=== PATIENT | female | born 1985 | race Caucasian/White ===

== ENCOUNTER 2017-11-12 21:05 | Emergency (ER) | payer OTHER ==
[~2017-11-12] VITALS: Ht 152.4 cm; Wt 51.3 kg
[~2017-11-12 21:05] MED LIST: [UNRECOGNIZED DRUG - CODE] PO
[2017-11-12 21:09] VITALS: BP 111/72
--- NOTE | 2017-11-12 21:12 | NUR ---
TO LOBBY A/W BED, AMBULATORY , VSS, HIRAM NOTED
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
[2017-11-12] MEDS ORDERED: IBUPROFEN 600 MG TAB PO ONE (22:35)
--- NOTE | 2017-11-12 23:27 | NUR ---
CALLED CT WITH NO ANSWER
--- NOTE | 2017-11-12 23:40 | NUR ---
PT RETURNED FROM CT
[2017-11-13 00:59] VITALS: BP 128/75
--- NOTE | 2017-11-13 01:00 | NUR ---
Patient discharged BY DR. LOVE with v/s stable. Written and verbal after care instructions given and explained. Patient alert, oriented and verbalized understanding of instructions. Ambulatory with steady gait. All questions addressed prior to discharge. ID band removed. Patient advised to follow up with PMD. Rx of NAPROSYN 500MG given. Patient educated on indication of medication including possible reaction and side effects. Opportunity to ask questions provided and answered.
== END 2017-11-13 01:00 | disposition home or self-care (01) ==
LOC: MED 21:05
DX: S09.90XA Unspecified injury of head, initial encounter (principal); W22.8XXA Striking against or struck by other objects, initial encounter; Y93.89 Activity, other specified; Y92.89 Other specified places as the place of occurrence of the external cause; Y99.8 Other external cause status; Z79.899 Other long term (current) drug therapy
CPT/HCPCS: 70450; 81025; 99284

== ENCOUNTER 2020-11-17 17:14 | Emergency (ER) | payer BC, OTHER ==
[~2020-11-17] VITALS: Ht 152.4 cm; Wt 50.8 kg
[2020-11-17 17:18] VITALS: BP 109/71
--- NOTE | 2020-11-17 17:22 | NUR ---
PATIENT AMBULATED TO BED 5
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
[2020-11-17 18:15] LABS: BILIRUBIN,URINE NEGATIVE (NEGATIVE); BLOOD, URINE 3+ (NEGATIVE); LEUKOCYTE ESTERASE ,URINE NEGATIVE (NEGATIVE); NITRITE, URINE NEGATIVE (NEGATIVE); PH,URINE 6.5 (5.0-9.0); UGLUCOSE NEGATIVE (NEGATIVE)
[2020-11-17 18:20] LABS: APPEARANCE,URINE BLOODY (CLEAR); COLOR,URINE RED (YELLOW)
[2020-11-17 18:21] LABS: RBC,URINE TOO NUMEROUS TO COUN /HPF (0-5); WBC,URINE 0-5 /HPF (0-5)
[2020-11-17 18:35] LABS: BASOPHILS # (AUTO) 0.2 K/uL (0.00-0.22); BASOPHILS % (AUTO) 1.6 % (0.0-2.0); EOSINOPHILS # (AUTO) 0.1 K/uL (0-0.4); EOSINOPHILS % (AUTO) 0.6 % (0.0-4.0); HEMATOCRIT 35.8 % (36-48); HEMOGLOBIN 12.3 g/dL (12.0-16.0); LYMPHOCYTES % (AUTO) 9.7 % (20.5-51.1); MEAN CORPUSCULAR HEMOGLOBIN 31 pg (27-31); MEAN CORPUSCULAR HGB CONC 34 g/dL (33-37); MEAN CORPUSCULAR VOLUME 91.5 fL (80-94); MONOCYTES # (AUTO) 0.6 K/uL (0.8-1.0); MONOCYTES % (AUTO) 5.7 % (1.7-9.3); NEUTROPHILS # (AUTO) 8.7 K/uL (1.8-7.7); NEUTROPHILS % (AUTO) 82.4 % (42.2-75.2); PLATELET COUNT (AUTO) 236 K/uL (140-450); RED BLOOD CELL COUNT(AUTO) 3.92 MIL/uL (4.20-5.40); RED CELL DISTRIBUTION WIDTH 13.1 % (11.6-13.7); WHITE BLOOD COUNT (AUTO) 10.6 K/uL (4.8-10.8)
[2020-11-17 18:55] LABS: ALBUMIN 4.1 g/dL (3.4-5.0); ANION GAP 9.2 (8-16); CARBON DIOXIDE 30.6 mmol/L (21-32); CREATININE 0.8 mg/dL (0.6-1.3); POTASSIUM 3.8 mmol/L (3.5-5.1); TOTAL BILIRUBIN 0.5 mg/dL (0.0-1.0)
[2020-11-17] MEDS ORDERED: CEPH-588 PO (19:15)
[2020-11-17] MEDS ORDERED: IBUP-2213 PO (19:15)
[2020-11-17] MEDS ORDERED: cefTRIAXone 1,000 MG in LIDOCAINE MPF 1% 2.1 ML IM ONE (19:20)
--- NOTE | 2020-11-17 19:20 | NUR ---
Patient lying in bed locked inlowest position, x1 side rail up. Breathing even and unlabored. NAD noted. Denies current pain.
[2020-11-17] MEDS ORDERED: cefTRIAXone 1,000 MG VIAL ONE (19:23)
[2020-11-17] MEDS ORDERED: LIDOCAINE MPF 1% 5 ML ONE (19:24)
[2020-11-17 19:42] VITALS: BP 109/71
--- NOTE | 2020-11-17 19:42 | NUR ---
Patient discharged with v/s stable. Written and verbal after care instructions given and explained. Patient alert, oriented and verbalized understanding of instructions. Ambulatory with steady gait. All questions addressed prior to discharge. ID band removed. Patient advised to follow up with PMD. Rx of Ibuprofen, Keflex given. Patient educated on indication of medication including possible reaction and side effects. Opportunity to ask questions provided and answered.
== END 2020-11-17 19:42 | disposition home or self-care (01) ==
LOC: MED 17:14
DX: N39.0 Urinary tract infection, site not specified (principal)
CPT/HCPCS: 36415; 80053; 81001; 81025; 85025; 87086; 96372; 99283; J0696; J2001

== ENCOUNTER 2020-12-18 18:37 | Emergency (ER) | payer BC, OTHER ==
[~2020-12-18] VITALS: Ht 152.4 cm; Wt 50.8 kg
[~2020-12-18 18:37] MED LIST changes: +CEPH-588 PO; +IBUP-2213 PO
--- NOTE | 2020-12-18 18:39 | NUR ---
WILNER Garcia is evaluating patient at bedside
[2020-12-18 18:41] VITALS: BP 124/74
--- NOTE | 2020-12-18 18:44 | NUR ---
Pt ambulated to restroom for urine sample.
--- NOTE | 2020-12-18 18:46 | NUR ---
Pt ambulated to bed 09 with steady/even gait accompanied by family.
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
--- NOTE | 2020-12-18 18:55 | NUR ---
INDRA handed to CPT Mansi at ER bedside.
--- NOTE | 2020-12-18 19:04 | NUR ---
Pt transported to [facility] via wheelchair
--- NOTE | 2020-12-18 19:10 | NUR ---
REPORT AND TRANSFER OF CARE ENDORSED TO LUNA STOUT.
--- NOTE | 2020-12-18 19:10 | NUR ---
REPORT RECEIVED FROM LUNA VIEYRA. TRANSFER OF CAREAT THIS TIME.
--- NOTE | 2020-12-18 19:23 | NUR ---
PT IS SITTING UP IN BED, IN STABLE CONDITION. PT STATED PAIN IS TOLERABLE A THIS MOMENT. ALL NEEDS MET AT THIS TIME. BED LOCKED IN LOWEST POSITION, SIDE RAILS X1.
[2020-12-18] MEDS ORDERED: KETOROLAC 30 MG/ML VIAL IM ONE (19:30)
[2020-12-18] MEDS ORDERED: NAPR-1704 PO (19:38)
[2020-12-18 20:01] VITALS: BP 124/74
--- NOTE | 2020-12-18 20:01 | NUR ---
Patient discharged with v/s stable. Written and verbal after care instructions given and explained. Patient alert, oriented and verbalized understanding of instructions. Ambulatory with steady gait. All questions addressed prior to discharge. ID band removed. Patient advised to follow up with PMD. Rx of NARPOSYN given. Patient educated on indication of medication including possible reaction and side effects. Opportunity to ask questions provided and answered.
== END 2020-12-18 20:01 | disposition home or self-care (01) ==
LOC: MED 18:37
DX: S22.31XA Fracture of one rib, right side, initial encounter for closed fracture (principal); W18.39XA Other fall on same level, initial encounter; Y93.89 Activity, other specified; Y92.89 Other specified places as the place of occurrence of the external cause; Y99.8 Other external cause status
CPT/HCPCS: 71101; 81025; 96372; 99283; J1885

== ENCOUNTER 2022-02-28 16:19 | Emergency (ER) | payer OTHER, BC ==
[~2022-02-28] VITALS: Ht 152.4 cm; Wt 47.6 kg
[~2022-02-28 16:19] MED LIST changes: +NAPR-1704 PO
[2022-02-28 16:24] VITALS: BP 123/76
--- NOTE | 2022-02-28 16:31 | NUR ---
Pt ambulated to bed 06 with steady/even gait.
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
--- NOTE | 2022-02-28 16:38 | NUR ---
MD BANSAL AT BEDSIDE FOR EVALUATION
[2022-02-28] MEDS ORDERED: ACETAMINOPHEN 325 MG TAB PO ONE (16:55)
--- NOTE | 2022-02-28 17:18 | NUR ---
XRAY AT BEDSIDE
[2022-02-28] MEDS ORDERED: BACITRACIN OINT 500 UNITS/GM PKT TP ONE (17:55)
[2022-02-28] MEDS ORDERED: KETOROLAC 15 MG/ML VIAL IM ONE (17:55)
--- NOTE | 2022-02-28 18:17 | NUR ---
PTS RIGHT ANTERIOR WRIST WAS CLEANED WITH BETADINE AND SALINE SOLUTION WITH GAUZE 4X4 AND THEN DRESSED WITH NON ADHERENT GAUZE PAD AND GAUZE ROLL.
[2022-02-28 18:26] VITALS: BP 123/76
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
[2022-02-28] MEDS ORDERED: IBUP-2213 PO (18:30)
[2022-02-28] MEDS ORDERED: ACET-10509 PO (18:30)
== END 2022-02-28 18:26 | disposition home or self-care (01) ==
LOC: MED 16:19
DX: S13.4XXA Sprain of ligaments of cervical spine, initial encounter (principal); S50.11XA Contusion of right forearm, initial encounter; S09.90XA Unspecified injury of head, initial encounter; M25.561 Pain in right knee; V49.88XA Car occupant (driver) (passenger) injured in other specified transport accidents, initial encounter; Y93.89 Activity, other specified; Y92.89 Other specified places as the place of occurrence of the external cause; Y99.8 Other external cause status
CPT/HCPCS: 71045; 73090; 73562; 81025; 90471; 90715; 96372; 99284; J1885; Q0092

== ENCOUNTER 2022-03-05 12:26 | Emergency (ER) | payer OTHER, BC ==
[~2022-03-05] VITALS: Ht 152.4 cm; Wt 48.2 kg
[~2022-03-05 12:26] MED LIST changes: +ACET-10509 PO
[2022-03-05 13:52] VITALS: BP 102/67
--- NOTE | 2022-03-05 13:57 | NUR ---
Erik miramontes in [facility] - 03/05/22 at 1359 by MED1 [facility] B
[2022-03-05] MEDS ORDERED: KETOROLAC 60 MG/2 ML VIAL IM ONE (14:25)
[2022-03-05] MEDS ORDERED: IBUP-2213 PO (14:46)
[2022-03-05] MEDS ORDERED: ONDA8TAB87 PO (14:46)
[2022-03-05] MEDS ORDERED: ACET-8386 PO (14:46)
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
--- NOTE | 2022-03-05 15:00 | NUR ---
Patient discharged with v/s stable. Written and verbal after care instructions ABOUT GENERAL HEADACHE given and explained. Patient alert, oriented and verbalized understanding of instructions. Ambulatory with steady gait. All questions addressed prior to discharge. ID band removed. Patient advised to follow up with PMD. Rx of NORCO 5-325, IBUPROFEN AND ZOFRFAN given. Patient educated on indication of medication including possible reaction and side effects. Opportunity to ask questions provided and answered.
== END 2022-03-05 15:00 | disposition home or self-care (01) ==
LOC: MED 12:26
DX: R51.9 Headache, unspecified (principal); R55 Syncope and collapse; R11.0 Nausea; Z79.899 Other long term (current) drug therapy; Z98.890 Other specified postprocedural states; V89.2XXA Person injured in unspecified motor-vehicle accident, traffic, initial encounter; Y93.89 Activity, other specified; Y92.89 Other specified places as the place of occurrence of the external cause; Y99.8 Other external cause status
CPT/HCPCS: 70450; 81025; 96372; 99284; J1885; 81002

== ENCOUNTER 2022-08-24 10:13 | Emergency (ER) | payer BC, OTHER ==
[~2022-08-24] VITALS: Ht 149.9 cm; Wt 49.4 kg
[~2022-08-24 10:13] MED LIST changes: +ACET-8905 PO; +ONDA8TAB87 PO
[2022-08-24 10:20] VITALS: BP 116/57
--- NOTE | 2022-08-24 10:28 | NUR ---
pt to chair A
[2022-08-24] MEDS ORDERED: IBUPROFEN 600 MG TAB PO ONE (10:35)
[2022-08-24] MEDS ORDERED: HYDROcodone/APAP 5/325 MG 1 TAB TAB PO ONE (11:10)
--- NOTE | 2022-08-24 11:40 | NUR ---
splint in place RLE, n/c intact, already medicated as ordered
[2022-08-24] MEDS ORDERED: ACET-8905 PO (11:50)
[2022-08-24] MEDS ORDERED: IBUP-2213 PO (11:50)
[2022-08-24 12:12] VITALS: BP 102/56
--- NOTE | 2022-08-24 12:13 | NUR ---
Patient discharged with v/s stable. Written and verbal after care instructions given and explained. Patient verbalized understanding. Ambulatory with steady gait, proper crutches use noted. splint on, n/c intact. All questions addressed prior to discharge. Advised to follow up with PMD. pain 2/10 at dc time
[2022-08-25] MEDS ORDERED: ACET-8905 PO (12:18)
== END 2022-08-24 12:12 | disposition home or self-care (01) ==
LOC: MED 10:13
DX: S82.831A Other fracture of upper and lower end of right fibula, initial encounter for closed fracture (principal); Z79.899 Other long term (current) drug therapy; Z79.1 Long term (current) use of non-steroidal anti-inflammatories (NSAID); Z79.2 Long term (current) use of antibiotics; Z79.891 Long term (current) use of opiate analgesic; X58.XXXA Exposure to other specified factors, initial encounter; Y93.01 Activity, walking, marching and hiking; Y92.89 Other specified places as the place of occurrence of the external cause; Y99.8 Other external cause status
CPT/HCPCS: 29515; 73610; 81025; 99284